=== PATIENT | female | born 1995 | race Caucasian/White ===

== ENCOUNTER 2018-02-18 21:17 | Emergency (ER) | payer OTHER ==
[2018-02-18 22:14] LABS: APPEARANCE,URINE CLOUDY; BILIRUBIN,URINE NEGATIVE (NEGATIVE); COLOR,URINE RED; GLUCOSE, URINE NEGATIVE (NEGATIVE); KETONES,URINE NEGATIVE (NEGATIVE); LEUKOCYTE ESTERASE,URINE TRACE (NEGATIVE); NITRITE,URINE NEGATIVE (NEGATIVE); PROTEIN,URINE 100 mg/dL (NEGATIVE); UROBILINOGEN,URINE NEGATIVE mg/dL (<2.0)
--- NOTE | 2018-02-18 22:46 | ER Document Report ---
ED General - General Chief Complaint: Flank Pain Stated Complaint: LOWER RIGHT BACK PAIN,BLOOD IN URINE Time Seen by Provider: 02/18/18 21:49 Notes: Patient is a 22-year-old female without chronic medical problems who presents with gross hematuria and right flank pain. The patient states the right flank pain has now resolved but when it was present was a severe, throbbing, constant pain. Nothing improved or worsened the pain when present. The patient reports that she is had intermittent gross hematuria over the past 2-3 months, was told that she might have a kidney stone in the past but was never seen by urology. She has not had fever or constitutional symptoms. No vomiting. No abdominal pain at the time of my assessment. She has never had a confirmed kidney stone the past. TRAVEL OUTSIDE OF THE [place] IN LAST 30 DAYS: No - Related Data Allergies/Adverse Reactions: No Known Allergies Allergy (Unverified 02/18/18 21:20) Past Medical History - General Information source: Patient - Social History Smoking Status: Current Every Day Smoker Chew tobacco use (# tins/day): No Frequency of alcohol use: Social Drug Abuse: None Lives with: Spouse/Significant other Family History: Reviewed & Not Pertinent Patient has suicidal ideation: No Patient has homicidal ideation: No Renal/ Medical History: Denies: Hx Peritoneal Dialysis Review of Systems - Review of Systems Notes: Constitutional: Negative for fever. HENT: Negative for sore throat. Eyes: Negative for visual changes. Cardiovascular: Negative for chest pain. Respiratory: Negative for shortness of breath. Gastrointestinal: Positive for flank pain and nausea now resolved Genitourinary: Positive for hematuria Musculoskeletal: Negative for back pain. Skin: Negative for rash. Neurological: Negative for headaches, weakness or numbness. 10 point ROS negative except as marked above and in HPI. Physical Exam - Vital signs Vitals: Temp Pulse Resp BP Pulse Ox 97.8 F 78 18 127/78 H 99 02/18/18 21:23 02/18/18 21:23 02/18/18 21:23 02/18/18 21:23 02/18/18 21:23 Interpretation: Normal Notes: PHYSICAL EXAMINATION: GENERAL: Well-appearing, well-nourished and in no acute distress. HEAD: Atraumatic, normocephalic. EYES: Pupils equal round and reactive to light, extraocular movements intact, sclera anicteric, conjunctiva are normal. ENT: nares patent, oropharynx clear without exudates. Moist mucous membranes. NECK: Normal range of motion, supple without lymphadenopathy LUNGS: Breath sounds clear to auscultation bilaterally and equal. No wheezes rales or rhonchi. HEART: Regular rate and rhythm without murmurs ABDOMEN: Soft, nontender, normoactive bowel sounds. No guarding, no rebound. No masses appreciated. EXTREMITIES: Normal range of motion, no pitting or edema. No cyanosis. NEUROLOGICAL: No focal neurological deficits. Moves all extremities spontaneously and on command. PSYCH: Normal mood, normal affect. SKIN: Warm, Dry, normal turgor, no rashes or lesions noted. Course - Re-evaluation Re-evalutation: 02/18/18 22:42 Patient presents with acute onset of right flank pain rating into her right lower abdomen that has now mostly resolved. Patient also has urinary frequency. Her urinalysis shows both hematuria as well as pyuria. Will obtain a CT scan of the abdomen pelvis without contrast to see if there is an acute kidney stone as this would be suggestive of a possible infected stone. Thankfully patient has no fever, tachycardia or constitutional symptoms to suggest sepsis in this context. 02/18/18 23:19 CBC and basic metabolic panel unremarkable. CT scan of the abdomen pelvis does reveal a 5.8 mm distal right ureteral stone with associated hydronephrosis. This is consistent with the patient's history of having had intermittent hematuria for the past several months and I suspect that the stone has actually been lodged there since the patient was approximately 8 months . Given the absence of any fever or constitutional symptoms, normal white count I do not believe the patient requires an emergent referral to urology at this time. I have advised the patient she does however need follow-up with urology as an outpatient within the next 24-48 hours and that she needs to return to the emergency department immediately if she develops fever, constitutional symptoms, worsening of her pain, decreased urination, passes out, or has any other more concerning symptoms. She states that she understands, states she understands the severity of a possible sepsis in the setting of an infected stone and the need to return to the hospital immediately should she develop such symptoms. - Vital Signs Vital signs: Temp Pulse Resp BP Pulse Ox 98.3 F 66 16 119/96 H 99 02/19/18 00:12 02/19/18 00:12 02/19/18 00:12 02/19/18 00:12 02/19/18 00:12 - Laboratory Result Diagrams: 02/18/18 21:55 02/18/18 21:55 Laboratory results interpreted by me: 02/18/18 21:55 Urine Protein 100 H Urine Blood LARGE H Ur Leukocyte Esterase TRACE H - Diagnostic Test Radiology reviewed: Reports reviewed Discharge - Discharge Clinical Impression: Pyuria, Hydronephrosis of right kidney, Kidney stone on right side Condition: Good Disposition: HOME, SELF-CARE Additional Instructions: You have a 5.8 mm kidney stone on the right side that is blocking your right kidney. You need to follow-up with urology urgently as your urine also shows white blood cells which could suggest infection. You have been started on antibiotics and need to take these until completion. You have been placed on tamsulosin to help try to pass the stone although I believe your stone has likely been stuck for several months given that you have had bleeding in your u rine for that time period. You need to return to the emergency room if immediately if you develop a fever of greater than 100.4 F, develop persistent vomiting, have worsening of your pain, pass out, or have any other symptoms that are worrisome to you. For your pain: Take ibuprofen 600 mg and acetaminophen 1000 mg every 6 hours together as needed for pain. If this does not control your pain you may take 15 mg of oral morphine every 4 hours as needed. Please be very careful about using the oral morphine and only use this for severe pain. Prescriptions: Morphine Sulfate [Morphine Ir 15 mg Tablet] 15 mg PO Q8HP PRN #8 tablet PRN Reason: Cephalexin Monohydrate [Keflex 500 mg Capsule] 500 mg PO Q6H 7 Days capsule Ondansetron [Zofran Odt 4 mg Tablet] 1 - 2 tab PO Q4H PRN #15 tab.rapdis PRN Reason: For Nausea/Vomiting Tamsulosin HCl [Flomax 0.4 mg Cap.sr] 0.4 mg PO DAILY #7 cap.sr.24h
[2018-02-18 22:47] LABS: ABSOLUTE BASOPHILS # (AUTO) 0.1 10^3/uL (0.0-0.2); ABSOLUTE EOSINOPHILS # (AUTO) 0.3 10^3/uL (0.0-0.6); ABSOLUTE LYMPHOCYTES (AUTO) 2.6 10^3/uL (0.5-4.7); ABSOLUTE MONOCYTES (AUTO) 0.6 10^3/uL (0.1-1.4); ABSOLUTE NEUT (AUTO) 4.8 10^3/uL (1.7-8.2); BASOPHILS % (AUTO) 1.1 % (0-2); EOSINOPHILS % (AUTO) 3.5 % (0-6); HEMATOCRIT 39.2 % (36.0-47.0); HEMOGLOBIN 13.1 g/dL (12.0-15.5); LYMPHOCYTES % (AUTO) 31.3 % (13-45); MEAN CORPUSCULAR HEMOGLOBIN 27.5 pg (27.0-33.4); MEAN CORPUSCULAR HGB CONC 33.5 g/dL (32.0-36.0); MEAN CORPUSCULAR VOLUME 82 fl (80-97); MONOCYTES % (AUTO) 7.2 % (3-13); PLATELET COUNT 343 10^3/uL (150-450); RED BLOOD COUNT 4.78 10^6/uL (3.72-5.28); RED CELL DISTRIBUTION WIDTH 13.8 % (11.5-14.0); SEGMENTED NEUTROPHILS % (AUTO) 56.9 % (42-78); TOTAL CELLS COUNTED % (AUTO) 100 %; WHITE BLOOD COUNT 8.4 10^3/uL (4.0-10.5)
[2018-02-18 22:52] LABS: ANION GAP 10 (5-19); BLOOD UREA NITROGEN 11 mg/dL (7-20); CALCIUM 9.5 mg/dL (8.4-10.2); CARBON DIOXIDE 27 mmol/L (22-30); CHLORIDE 103 mmol/L (98-107); GLUCOSE 102 mg/dL (75-110); POTASSIUM 3.6 mmol/L (3.6-5.0); SODIUM 140.2 mmol/L (137-145)
--- NOTE | 2018-02-18 23:05 | RADIOLOGY REPORT (SQ) ---
EXAM DESCRIPTION: CT ABDOMEN PELVIS WITHOUT IV CONTRAST COMPLETED DATE/TME: 02/18/2018 22:39 CLINICAL HISTORY: 22 years, Female, right flank pain, eval ?septic stone COMPARISON: None. TECHNIQUE: [id number] Images stored on PACS. All CT scanners at this facility use dose modulation, iterative reconstruction, and/or weight based dosing when appropriate to reduce radiation dose to as low as reasonably achievable (ALARA). [facility]: Dose Right [facility]: CareDose [facility]: Dose Right [facility]: Teradose 4D [facility]: [employer] LIMITATIONS: None. FINDINGS: Limited evaluation of the lung bases is unremarkable. Osseous structures are grossly intact. The liver, spleen, adrenal glands, pancreas, left kidney are unremarkable. The gallbladder is contracted. Moderate to severe right-sided hydronephrosis and hydroureter. Portions of the distal ureter are not well seen, however there is an approximately 5.8 mm round calculus in the region of the distal right ureter which may be the cause for the obstruction. No free air or free fluid. Urinary bladder is not distended, limiting its evaluation. No gross evidence for bowel obstruction. Normal appendix. IMPRESSION: Moderate to severe right-sided hydronephrosis and hydroureter, likely secondary to a 5.8 mm calculus in the right hemipelvis, which is likely within the distal right ureter. The distal ureters were not well seen. TECHNICAL DOCUMENTATION: Quality ID # [id number]: Final reports with documentation of one or more dose reduction techniques (e.g., Automated exposure control, adjustment of the mA and/or kV according to patient size, use of iterative reconstruction technique) copyright 2011 [employer]- All Rights Reserved
[2018-02-18] MEDS ORDERED: CEFTRIAXONE INJ 1000 MG VIAL IV ONE (23:13)
[2018-02-18] MEDS ORDERED: KETOROLAC TROMETHAMINE INJ/PF 30 MG/1 ML SDV IV ONE (23:24)
[2018-02-18] MEDS ORDERED: TAMSULOSIN HCL 0.4 MG CAP.SR.24H PO ONE (23:24)
[2018-02-19 00:13] VITALS: BP 119/96
== END 2018-02-19 00:13 | disposition home or self-care (01) ==
LOC: ER 21:17
DX: N20.0 Calculus of kidney (principal); N13.30 Unspecified hydronephrosis; N39.0 Urinary tract infection, site not specified; M54.5 Low back pain; R31.9 Hematuria, unspecified; F17.200 Nicotine dependence, unspecified, uncomplicated
CPT/HCPCS: 99284; 96375; 96365; 36415; 87086; 85025; 81025; 87088; 80048; 81001; 74176; J1885; J0696